=== PATIENT | female | born 1990 | race Hispanic/Latino ===

== ENCOUNTER 2017-02-16 22:50 | Emergency (ER) | payer BC ==
[2017-02-16 23:00] VITALS: BP 120/79; PULSE 79; RESP 18; TEMP 98.3; O2SAT 99
--- NOTE | 2017-02-16 23:29 | ED PDOC ---
HPI: Head Injury Time Seen by Provider: 02/16/17 23:08 Chief Complaint (Nursing): Trauma Chief Complaint (Provider): head injury History Per: Patient History/Exam Limitations: no limitations Injury Occurred (Timing): Hours Ago: (4) Patient States: Fell Striking Head Additional History Per: Patient Additional Complaint(s): 26 y/o female no past medical history presents with head injury sustained 4 hours prior to arrival. 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 Patient states while fainting she fell backwards and hit back of head on wood floor. Patient states witnessed event, states patient was unresponsive for a few minutes. Patient notes occipital headache. Denies dizziness, nausea/vomiting, vision changes, extremity numbness /weakness. Tetanus not up to date. Past Medical History Reviewed: Historical Data, Nursing Documentation, Vital Signs Vital Signs: Last Vital Signs Temp 98.3 F 02/16/17 22:56 Pulse 79 02/16/17 22:56 Resp 18 02/16/17 22:56 BP 120/79 02/16/17 22:56 Pulse Ox 99 02/16/17 22:56 - Medical History PMH: No Chronic Diseases - Surgical History Surgical History: No Surg Hx - Family History Family History: States: No Known Family Hx - Living Arrangements Living Arrangements: With Family - Allergies Allergies/Adverse Reactions: Allergies Allergy/AdvReac Type Severity Reaction Status Date / Time No Known Allergies Allergy Verified 02/16/17 22:56 Review of Systems ROS Statement: Except As Marked, All Systems Reviewed And Found Negative Musculoskeletal: Positive for: Hand Pain (left hand ) Neurological: Positive for: Headache Physical Exam - Reviewed Nursing Documentation Reviewed: Yes Vital Signs Reviewed: Yes - Physical Exam Appears: Positive for: Well, Non-toxic, No Acute Distress Head Exam: Positive for: ATRAUMATIC, NORMAL INSPECTION, NORMOCEPHALIC Skin: Positive for: Normal Color Eye Exam: Positive for: Normal appearance, EOMI, PERRL ENT: Positive for: Normal ENT Inspection Cardiovascular/Chest: Positive for: Regular Rate, Rhythm Respiratory: Positive for: Normal Breath Sounds Gastrointestinal/Abdominal: Positive for: Normal Exam Back: Positive for: Normal Inspection Extremity: Positive for: Normal ROM, Other (linear abrasions proximal palmar digits 3 and 4 left hand; no active bleeding, surrounding erythema/tenderness) Neurologic/Psych: Positive for: Alert, Oriented - ECG ECG: Positive for: Viewed By Me (reviewed by ED attending) ECG Rhythm: Positive for: Sinus Rhythm O2 Sat by Pulse Oximetry: 99 - Progress ED Course And Treament: accucheck, CT head, Adacel IM Abrasions cleaned with normal saline, bacitracin applied, bandaged. EXAM: CT Head Without Intravenous Contrast CLINICAL HISTORY: 26 years old, female; Injury or trauma; Fall; Additional info: Head injury TECHNIQUE: Axial computed tomography images of the head/brain without intravenous contrast. All CT scans at this facility use one or more dose reduction techniques, viz.: automated exposure control; ma/kV adjustment per patient size (including targeted exams where dose is matched to indication; i.e. head); or iterative reconstruction technique. Coronal and sagittal reformatted images were created and reviewed. COMPARISON: No relevant prior studies available. FINDINGS: Brain: No acute intracranial hemorrhage. No significant white matter disease. No edema. Ventricles: No significant ventriculomegaly. Bones: No acute displaced fracture. Sinuses: Unremarkable as visualized. No acute sinusitis. Mastoid air cells: Unremarkable as visualized. No mastoid effusion. IMPRESSION: No acute intracranial hemorrhage, or suspicious mass effect. Patient educated on findings, discharged with instructions to follow up PMD 2-3 days. Advised Tylenol/Ibuprofen PRN headache. Bacitracin for wound care. Return to ED for worsening/concerning symptoms. Disposition - Clinical Impression Clinical Impression: Head injury, Cut of finger, Vaso vagal episode - Patient ED Disposition Is Patient to be Admitted: No Counseled Patient/Family Regarding: Studies Performed, Diagnosis, Need For Followup - Disposition Referrals: Amanda Nazario MD [Primary Care Provider] - Disposition: Routine/Home Disposition Time: 01:21 Condition: IMPROVED Additional Instructions: Follow up with primary doctor in 2-3 days. Take Tylenol as directed, as needed for headache. Apply neosporin to finger cuts. Return to ED for worsening/concerning symptoms. Instructions: Syncope (ED), Head Injury (ED), Abrasion (ED) Forms: [employer] ([place]rainian)
--- NOTE | 2017-02-17 08:29 | CT ---
PROCEDURE: CT HEAD WITHOUT CONTRAST. HISTORY: Head injury COMPARISON: None available. TECHNIQUE: Axial computed tomography images were obtained through the head/brain without intravenous contrast. Radiation dose: Total exam DLP = 778.15 mGy-cm. This CT exam was performed using one or more of the following dose reduction techniques: Automated exposure control, adjustment of the mA and/or kV according to patient size, and/or use of iterative reconstruction technique. FINDINGS: HEMORRHAGE: No intracranial hemorrhage. BRAIN: Farmer-white matter differentiation is preserved. There is no mass, mass effect or abnormal extra-axial fluid collection. VENTRICLES: The ventricles are normal in size, shape and configuration. CALVARIUM: There is no calvarial fracture or extracranial soft tissue swelling. PARANASAL SINUSES: Predominantly clear. MASTOID AIR CELLS: Predominantly clear. OTHER FINDINGS: None. IMPRESSION: No acute intracranial abnormality.
--- NOTE | 2017-02-18 11:58 | CARD ---
APPROVED REPORT EKG Measurement Heart [id number] <Conclusion> Normal sinus rhythm with sinus arrhythmia Normal ECG
== END 2017-02-17 02:00 | disposition home or self-care (01) ==
LOC: H.ER 22:50
DX: S09.90XA Unspecified injury of head, initial encounter (principal); W19.XXXA Unspecified fall, initial encounter; Y92.89 Other specified places as the place of occurrence of the external cause; S61.218A Laceration without foreign body of other finger without damage to nail, initial encounter; W26.8XXA Contact with other sharp object(s), not elsewhere classified, initial encounter